=== PATIENT | male | born 1945 | race Caucasian/White ===

== ENCOUNTER → 2016-11-19 13:37 | Outpatient (CLI) | payer MEDICARE, BC ==
[2011-11-12 13:14] VITALS: BMI 27.6
== END | disposition home or self-care (01) ==
LOC: D.CT 11-18 14:30
DX: I71.4 Abdominal aortic aneurysm, without rupture (principal)

== ENCOUNTER 2016-12-16 07:20 | Inpatient (IN) | payer MEDICARE, BC ==
[2016-12-16] VITALS (32 sets, daily range): BP systolic 114–141; BP diastolic 49–82; BMI 34.5; BMI 34.6
[2016-12-16 09:28] LABS: BASOPHILS 0.6 % (0-2); HEMATOCRIT 33.4 % (42.0-54.0); HEMOGLOBIN 10.3 g/dL (13.5-17.5); IMMATURE GRANULOCYTES 0.1 % (0-5); LYMPHOCYTES 22.9 % (15-50); MCH 23.8 pg (26.0-34.0); MCHC 30.8 g/dL (31.0-37.0); MCV 77.3 fL (80.0-100.0); MEAN PLATELET VOLUME 9.3 fL (7.4-10.4); NEUTROPHILS 65.4 % (40-80); RBC 4.32 10x6/uL (4.20-6.10); RDW 18.8 % (11.5-14.5); WBC 7.9 10x3/uL (4.8-10.8)
[2016-12-16 09:30] LABS: PLATELET COUNT 245 10x3/uL (130-400)
[2016-12-16 09:35] LABS: APTT 29.4 SECONDS (22.8-39.4); INR 1.08 (0.85-1.17); PROTIME 13.9 SECONDS (11.6-15.0)
[2016-12-16 09:45] LABS: ALBUMIN 3.6 g/dL (3.4-5.0); ANION GAP 12.5 mmol/L (8-16); BILIRUBIN - TOTAL 0.59 mg/dL (0.2-1.3); CALCIUM 8.9 mg/dL (8.5-10.1); CREATININE - SERUM 1.3 mg/dL (0.6-1.3); POTASSIUM - SERUM 4.5 mmol/L (3.5-5.1); PROTEIN - SERUM 7.6 g/dL (6.4-8.2)
[2016-12-16] MEDS ORDERED: PROBIOTIC1 EAC1 PO (09:56)
[2016-12-16] MEDS ORDERED: MELATONIN10 M1 PO (09:56)
[2016-12-16] MEDS ORDERED: RESTORIL15 MG PO (09:57)
[2016-12-16] MEDS ORDERED: CENTRUM MEN'S1 EACH PO (09:57)
[2016-12-16] MEDS ORDERED: ULTRAM50 MG PO (09:58)
[2016-12-16] MEDS ORDERED: NEXIUM40 MG PO (09:58)
[2016-12-16] MEDS ORDERED: VITAMIN B COMPL1 TAB PO (09:58)
[2016-12-16] MEDS ORDERED: DIOVAN160 MG PO (09:59)
[2016-12-16] MEDS ORDERED: BREO ELLIPTA 11 EACH INH (09:59)
[2016-12-16] MEDS ORDERED: BAYER CHEWABLE81 MG PO (09:59)
[2016-12-16] MEDS ORDERED: MOBIC7.5 MG PO (10:00)
[2016-12-16] MEDS ORDERED: PRILOSEC10 M1 PO (10:01)
[2016-12-16] MEDS ORDERED: OMEPRAZOLE20 M1 PO (10:01)
[2016-12-16 11:10] LABS: APPEARANCE CLEAR (CLEAR); BILIRUBIN NEGATIVE (NEGATIVE); COLOR DK YELLOW (YELLOW); GLUCOSE NEGATIVE (NEGATIVE); KETONE SMALL mg/dL (NEGATIVE); NITRITE NEGATIVE (NEGATIVE); PROTEIN NEGATIVE (NEGATIVE); UROBILINOGEN NORMAL (NORMAL)
--- NOTE | 2016-12-16 15:30 | NUR ---
REC'D PT FROM OR VIA BED, BILAT GROIN DRESSINGS CDI, NO SIGNS OF HEMATOMA. NY CATHETER FREE OF KINKS TO GRAVITY WITH CLEAR YELLOW URINE RETURN, 4LNC. RIGHT RADIAL A-LINE, WRIST PROTECTOR INTACT, GOOD WAVE FORM. SHIFT ASSESSMENT COMPLETED, SEE FLOW SHEET. ROOM FREE OF CLUTTER, CALL LIGHT IN REACH, NURSE AT THE BEDSIDE, WILL CONTINUE TO MONITOR PT.
--- NOTE | 2016-12-16 15:45 | NUR ---
DR. NARAYAN AT THE BEDSIDE SPEAKING WITH FAMILY, ALL QUESTIONS ANSWERED, VSS, WILL CONTINUE TO MONITOR PT.
--- NOTE | 2016-12-16 17:00 | NUR ---
SPOKE WITH JULY RN, DR. COTTO'S RN TO INFORM OF CONSULT, "I WILL TELL HIM"
--- NOTE | 2016-12-16 19:00 | NUR ---
REPORT RECIEVED. ASSESSMENT COMPLETED. SEE FLOW SHEET FOR FURTHER DETAILS. PT POSITIONED FOR COMFORT. CALL LIGHT IN REACH. BED IN LOW POSITION. WILL CONTINUE TO MONITOR.
--- NOTE | 2016-12-16 21:00 | NUR ---
SON AT BED SIDE. PT RESTING COMFORTABLY. WILL CONTINUE TO MONITOR PT.
--- NOTE | 2016-12-16 23:00 | NUR ---
REASSESSMENT COMPLETED. NO ACUTE CHNAGES AT THIS TIME. VSS. WILL CONTINUE TO MONITOR PT.
[2016-12-17] VITALS (42 sets, daily range): BP systolic 106–151; BP diastolic 47–76; BMI 35.9
--- NOTE | 2016-12-17 01:00 | NUR ---
PT RESTING COMFORTABLY. POSITIONED FOR COMFORT. CALL LIGHT IN REACH WILLL CONTINUE TO MONITOR PT.
--- NOTE | 2016-12-17 03:00 | NUR ---
REASSESSMENT COMPLETED AT THIS TIME. SEE FLOW SHEET FOR FURTHER DETAILS. PT POSITIONED FOR COMFORT WILL CONMTINUE TO MONITOR.
--- NOTE | 2016-12-17 05:00 | NUR ---
PT POSITIONED FOR COPMFORT, WILL CONTINUE TO MONITOR.
[2016-12-17 06:26] LABS: HEMOGLOBIN 8.4 g/dL (13.5-17.5); MCH 24.3 pg (26.0-34.0); MCHC 31.8 g/dL (31.0-37.0); MCV 76.5 fL (80.0-100.0); MEAN PLATELET VOLUME 9.1 fL (7.4-10.4)
[2016-12-17 06:29] LABS: HEMATOCRIT 26.4 % (42.0-54.0); RBC 3.45 10x6/uL (4.20-6.10); WBC 10.1 10x3/uL (4.8-10.8)
[2016-12-17 06:34] LABS: ANION GAP 12.2 mmol/L (8-16); CALCIUM 7.6 mg/dL (8.5-10.1); CARBON DIOXIDE 27.5 mmol/L (21.0-32.0); CREATININE - SERUM 1.2 mg/dL (0.6-1.3)
[2016-12-17 06:41] LABS: POTASSIUM - SERUM 3.7 mmol/L (3.5-5.1)
--- NOTE | 2016-12-17 07:15 | NUR ---
REPORT RECIEVED FROM EXPERIMENTAL MECHANIC OUTBOARD MOTORS NURSE. PT RESTING IN BED QUIETLY. NO S/SX OF ACUTE DISTRESS NOTED AT THIS TIME. FULL ASSESSMENT COMPLETE PER FLOWSHEET. REFER FOR DETAILS. CALL LIGHT IN REACH. WILL CONT TO ASSESS.
--- NOTE | 2016-12-17 09:00 | NUR ---
A-LINE AND NY CATHETER PULLED PER ORDERS. NO ISSUES NOTED UPON REMOVAL. BED BATH GIVEN AND ASSISTED TO RECLINER. MODERATE ASSIST REQUIRED. CALL LIGHT IN REACH ALONG WITH MODULAR SET CREW MEMBER BUTTOM. WILL CONT TO ASSESS.
--- NOTE | 2016-12-17 11:00 | NUR ---
REASSESSMENT COMPLETE PER FLOWSHEET. NO CHANGES NOTED AT THIS TIME. WILL CONT TO ASSESS.
--- NOTE | 2016-12-17 13:00 | NUR ---
PT AT BEDSIDE TO WALK PT.
--- NOTE | 2016-12-17 14:11 | NUR ---
* Is the patient Alert and Oriented? Yes 0 * How many steps to enter\exit or inside your home? 0 0 * PCP Dr. Pickard 0 * Pharmacy [facility] 0 * Preadmission Environment Home Alone 0 * ADLs Independent 0 * List name and contact numbers for known caregivers / representatives who currently or will assist patient after discharge: Josue Tran [phone] 0 * Additional services required to return to the preadmission environment? No 0 * Can the patient safely return to the preadmission environment? Yes 0 * Has this patient been hospitalized within the prior 30 days at any hospital? No Patient Name: JESSICA TRAN Admission Status: Urgent Accout number: [id number] Admission Date: 12-16-2016 : 1945 Admission Diagnosis: Attending: HARJIT NARAYAN Current LOS: 1 Anticipated DC Date: 12-18-2016 Planned Disposition: Home Primary Insurance: MEDICARE A & B Discharge Planning Comments: CM met with patient to assess dc plans/needs. Patient states he lives alone & is independent with all ADL's & IADL's. He does not use any DME at home or have home health services. At dc, he states his son will drive him home. 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 CM will follow & assist as needed. Clinical Project Coordinator: Arielle Cr
--- NOTE | 2016-12-17 15:00 | NUR ---
ASSISTED TO BATHROOM. VOIDED 20CC OF NELSON COLORED URINE. WILL CONT TO ASSES I&O'S.
--- NOTE | 2016-12-17 15:59 | OP ---
PATIENT NAME: JESSICA MCKEON MEDICAL RECORD: [id number] :[birth year] LOCATION:[facility] ADMISSION DATE:12/16/16 SURGEON: HARJIT NARAYAN MD DATE OF OPERATION: 12/16/2016 ANESTHESIA: General endotracheal, Dr. Newby OPERATION PERFORMED: Endovascular stent repair of abdominal aortic aneurysm. PREOPERATIVE DIAGNOSIS: Large abdominal aortic aneurysm. POSTOPERATIVE DIAGNOSIS: Large abdominal aortic aneurysm. INDICATION FOR OPERATION: Large abdominal aortic aneurysm. FINDINGS AT OPERATION: Contrast 78 cc Isovue. Fluoroscopy time was 8 minutes 4 seconds. ESTIMATED BLOOD LOSS: Less than 50 mL The endovascular stent graft was an Endurant II stent graft system. OPERATIVE PROCEDURE: 1. Open femoral artery exposure bilaterally, 82459-30. 2. Catheter sheath placement into the aorta, nonselective, 15879-34. 3. Endovascular AAA repair with modular bifurcated device, one docking limb, 97693. a. Rad S&I, 27126-10. 4. Repair of blood vessel direct bilaterally, 62872-32. The main body was a 28 x 13 x 166 in the ipsilateral right side. The docking limb 16 x 13 x 124 into the contra left. DESCRIPTION OF PROCEDURE: After informed consent and adequate preoperative medication evaluation, the patient was brought to the operating room and placed on the table in the supine position. After induction of general endotracheal anesthesia and application of appropriate monitoring devices, the chest, neck, abdomen, and both groins were prepped and draped in a sterile field utilizing Betadine scrub, alcohol, and Betadine solution. Betadine-impregnated drape was also used. Bilateral groin incisions were made above the inguinal ligament. Dissection was carried down to the fascia. Hemostasis maintained with electrocautery. The inguinal ligaments were elevated bilaterally and the common femoral arteries dissected free of surrounding structures proximally and distally and surrounded with vessel loops. The patient was given a calculated dose of heparin. Utilizing a micropuncture technique and exchange wires, the groins were accessed with a 7-Icelandic sheath. A Glidewire and pigtail catheter were placed in the aorta just above the renal arteries. An arteriogram obtained and delineated the features and measurements made. Exchange was made for a stiff wire on the right and the bifurcated device was placed at the renal arteries and deployed with suprarenal fixation. Attention was then turned toward the contralateral utilizing a Kumpe catheter and Glidewire, the contralateral gate was accessed and exchange made for a stiff wire. The contralateral limb was placed. Bilateral Reliant balloons were used to dilate the device and aortogram performed and demonstrated no endoleaks and good placement of the graft. The wires, catheter, sheaths were removed and the OPERATIVE REPORT [id number] LINDA,JESSICA artery was closed in 2 layers utilizing running 6-0 Prolene suture. All maneuvers to remove trapped air were performed. The clamps were removed sequentially. The patient was given a calculated dose of protamine to reverse the heparin. Hemostasis was maintained. Instrument count and sponge count were correct times 2. Wounds closed in layers utilizing 2-0 Vicryl on deep subcutaneous tissue, 5-0 subcuticular Monocryl on the skin. Sterile dressings were applied. The patient tolerated the procedure well and was transferred to the CV ICU in satisfactory condition. TRANSINT:[id number] Voice Confirmation ID: [id number] DOCUMENT ID: [id number] HARJIT NARAYAN MD at 1559 CC: [id number] DICTATION DATE: 12/16/16 1528 BUYING AGENT: 12/16/16 1643 ADM IN [facility] [address] [id number]
--- NOTE | 2016-12-17 15:59 | HP ---
PATIENT: JESSICA MCKEON MEDICAL RECORD: [id number] ACCOUNT: [id number] LOCATION:[facility] : [birth year] ADMISSION DATE: 12/16/16 HISTORY AND PHYSICAL EXAMINATION JESSICA Hare (71yo, M) ID# [id number]. Date/Time12/11/2016 01:90ZMARM93 1945Service Dept.[facility]PP[facility] ClinicProviderEDNIKA NARAYAN MDInsuranceMed Primary: [place] ([place]) Insurance # : [id number] Employer Name : RETIRED Med Secondary: [place] ([place]PPLEMENT) Insurance # : [id number] Employer Name : RETIRED Prescription: [place] - Member is eligible. Chief Complaint Followup: Abdominal aortic aneurysm without rupture RTC CTA AFRO Patient's Care Team Primary Care Provider: PAUL COTTO MD: [address] [place] [address], , Patient's Pharmacies [facility] [address] (ERX): [phone] [facility] [address], , Vitals BP:102/68 sitting R arm 12/11/2016 01:43 pmHR:80R/R 12/11/2016 01:43 pmHt:5 ft 9 in 12/11/2016 01:41 pmWt:225 lbs 12/11/2016 01:43 pmBMI:33.2 12/11/2016 01:43 pmAllergies Reviewed Allergies NKDAPOLLENMedications Reviewed Medications bisacodyl 5 mg tablet,delayed release TK UTD.10/02/13 filledsurescriptsBreo Ellipta 100 mcg-25 mcg/dose powder for aqaktbgjxi76/18/17 filledPRIMEchlorhexidine gluconate 0.12 % haxasabjt74/01/17 filledPRIMEesomeprazole magnesium 40 mg capsule,delayed release TAKE 1 CAPSULE PO ONCE DAILY10/09/16 filledPRIMEgabapentin 100 mg rfuplsx94/10/17 filledPRIMEHYDROcodone 5 mg-acetaminophen 325 mg ogkeci29/01/17 filledPRIMEibuprofen 800 mg sjelds34/14/15 filledPRIMEmagnesium oxide 400 mg tablet TK 1 T PO QD07/08/16 filledsurescriptsmeloxicam 15 mg tablet TK 1 T PO QAM11/09/16 filledPRIMEomeprazole 20 mg capsule,delayed itbaajk87/23/12 filledCaremarkpenicillin V potassium 500 mg /30/13 filledCaremarkpolyethylene glycol 3350 17 gram/dose oral ndddyq65/11/14 filledPRIMEPreviDent 5000 Booster Plus 1.1 % dental paste USE UTD.10/04/13 filledsurescriptsQUEtiapine 25 mg tablet TK 1 T PO HS08/31/16 filledPRIMEtemazepam 15 mg capsule TK 1 TO 2 CS PO HS11/09/16 filledsurescriptstraMADol 50 mg khawzo47/09/17 filledPRIMEtriazolam 0.25 mg rtehac15/01/17 filledsurescriptsvalsartan 160 mg tablet TK 1 T PO ONCE DAILY10/09/16 filledPRIMEvalsartan 160 mg-hydrochlorothiazide 12.5 mg tablet TK 1 T PO QAM06/02/14 filledsurescriptsProblems Reviewed Problems Hyperlipidemia Cyst of eyelid HISTORY AND PHYSICAL [id number] JESSICA MCKEON Essential hypertension Coronary arteriosclerosis in [place] artery Abdominal aortic aneurysm without rupture Gastroesophageal reflux disease Right upper quadrant pain Large liver History of polyp of colon Family History Discussed Family History Non-contributory.paternal: leukemia; maternal: htnSocial History Discussed Social History Cardiology Smoking Status: Current every day smoker (Notes: smokes about three cigars daily) High blood pressure: Y Exercise level: Moderate Alcohol intake: Occasional Diet: Regular Occupation: retired Marital status: Surgical History Reviewed Surgical History Other - 04/2011 - left hip surgery Past Medical History Discussed Past Medical History Abdominal Pain: Y - RUQ Aneurysmn (specify): Y - LT fem. art. Aortic Aneurysm: Y Circulation Problems: Y Coronary Artery Disease: Y GERD: Y High Blood Pressure: Y Hyperlipidemia: Y Hypertension: Y Documents for Discussion N/A Screening None recorded. HPI Peripheral Vascular Disease Reported by patient. Location: foot; "my neuropathy is bothering me." Severity: interferes with normal activity; moderate abdominal aortic aneurysm ROS Patient reports exercise intolerance but reports no fever, no night sweats, no significant weight gain, and no significant weight loss. He reports shortness of breath when walking but reports no chest pain, no arm pain on exertion, no shortness of breath when lying down, no palpitations, and no known heart murmur. He reports shortness of breath but reports no cough, no wheezing, and no coughing up blood. He reports no muscle aches, no muscle weakness, no arthralgias/joint pain, no back pain, and no swelling in the extremities; aches and pains and peripheral neuropathy. He reports no dry eyes, no irritation, and no vision change. He reports no difficulty hearing and no ear pain. He reports no frequent nosebleeds and no HISTORY AND PHYSICAL [id number] LINDA,JESSICA nose/sinus problems. He re ports no sore throat, no bleeding gums, no snoring, no dry mouth, no mouth ulcers, no oral abnormalities, and no teeth problems. He reports no abdominal pain, no vomiting, normal appetite, no diarrhea, not vomiting blood, no nausea, and no constipation. H e reports no incontinence, no difficulty urinating, no hematuria, and no increased frequency. He reports no abnormal mole, no jaundice, and no rashes. He reports no loss of consciousness, no weakness, no numbness, no seizures, no dizziness, and no headache s . He reports no depression, no sleep disturbances, feeling safe in relationship, and no alcohol abuse. He reports no fatigue. He reports no swollen glands and no bruising. He reports no runny nose, no sinus pressure, no itching, no hives, and no frequent sneezing. ROS as noted in the HPI Physical Exam Patient is a 71-year-old male. Constitutional: General Appearance well nourished and developed and healthy-appearing. Level of Distress NAD. Ambulation ambulating normally. Cardiovascular: Apical Impulse not displaced or no thrill. Heart Auscultation normal s1 and s2; no murmurs, rubs, or gallops; and RRR. Arterial Pulses no abdominal aorta bruits, femoral bruits, or popliteal bruits and 2+ bilateral, carotid 2+ bilateral, femoral 2+ bilate ral, popliteal 2+ bilateral, and dorsalis pedis 2+ bilateral. Edema no edema or varicosities. Lungs: Repiratory Effort no dyspnea. Percussion no hyperresonance or dullness or flatness. Auscultation no wheezing, rhonchi, or rales / crackles and breathing sounds normal, good air movement, and CTA except as noted. Abdomen: Bowl Sounds normal. Inspection and Palpation no tenderness, guarding, masses, or rebound tenderness and soft and non-distended; AAA NON TENDER. Liver non-tender and no hepatomegaly. Spleen non-tender and no splenomegaly. Hernia none palpable. Ears, Nose, Throat: Hearing grossly normal hearing. Nose no external nose lesion. Lips, Teeth, and Gums no mouth or lip ulcers. Oropharynx: moist mucous membranes. Musculoskeletal System: Gait And Stance normal gait and stance. Digits and Nails normal nails and no cyanosis. Neurologic: Cranial Nerves grossly intact. Reflexes DTRs 2+ bilaterally throughout. Sensation grossly intact. Lymph Nodes: Lymph Nodes no cervical LAD, supraclavicular LAD, axillary LAD, or inguinal LAD. Eyes: Lids and Conjunctivae no discharge or pallor and non-injected. Pupils PERRLA. Cornea grossly intact. EOM EOMI. Lens clear. Sclerae non-icteric. Neck: Neck no masses, enlarged lymph nodes, or carotid bruits and supple and trachea midline. Thyroid no enlargement or nodules and non-tender. Skin: Inspection and Palpation no rash, lesions, ulcers, jaundice, or abnormal nevi. Assessment / Plan 1. Abdominal aortic aneurysm without rupture I71.4: Abdominal aortic aneurysm, without rupture ABDOMINAL AORTIC ANEURYSM: CARE INSTRUCTIONS HISTORY AND PHYSICAL [id number] JESSICA MCKEON Discussion Notes I discussed mistake his disease process with him in detail as well as the alternative methods of treatment we discussed endovascular stent repair and ope n abdominal aneurysm repair including the expected benefits and risks which include bleeding, infection, stroke, , and the imponderables. He understands all of the above and wishes to proceed with planned procedure HARJIT NARAYAN MD at 1559 CC: [id number] DICTATION DATE: 12/11/16 1330 AUTOMATION AND CONTROLS MANAGER: 12/14/16 1128 ADM IN [id number] [place] [address]
--- NOTE | 2016-12-17 17:00 | NUR ---
SON AT BEDSIDE FOR VISITATION. NO CHANGES NOTED AT THIS TIME. WILL CONT TO ASSESS.
--- NOTE | 2016-12-17 19:30 | NUR ---
1930: Pt incision CDI no with no s/s of bleeding, oozing, or swelling noted. Pt denies pain, tingling, numbness, or nausea at this time. Pt temp 98.9 Oral.
--- NOTE | 2016-12-17 20:00 | NUR ---
2000: Pt rec'd sitting in chair. Pt requested to go back to bed. Pt able to stand without difficulty and has steady gait. Pt returned to bed and SR up x2. Pt states; "I am supposed to go home in the morning and the doctor said I coudl have all this stuff off." Discussed ICU policy with patient. Pt states; "I would really appreciate it if you could disconnect all this stuff (pionting at IVF+TABULAR TYPIST) and pull my curtain, close the door and let me sleep" Pt states he has not slept for 48 hours. Reviewed pt EMAR and TABULAR TYPIST orders. Pt states "I don't have pain, you can turn it off" Pt breathing RA RR16x with SPO2 97%. S1S2 SR 80's on CM with SBP 120-130. Attempted to minimize all care per pt request and comfort. ABD soft NT BSx4 active. Pt states he has no difficulty with elimination.
[2016-12-18] VITALS (11 sets, daily range): BP systolic 119–155; BP diastolic 53–92
--- NOTE | 2016-12-18 | NUR ---
0000: Pt resting with eyes closed at this time. Pt remains SR 90's on CM with SBP 120-130.
--- NOTE | 2016-12-18 03:30 | NUR ---
0330: Pt sitting up in bed at this time. Pt without c/o at this time. Remains Afebrile 98.1F oral temp. SR 80-90bpm on CM with SBP 130. Pt remains on RA RR19x with SPO2 94%. Pt groin sites unchanged from assessment. No bleeding or oozing noted. PPPx4. (R>L in quality)
--- NOTE | 2016-12-18 06:30 | NUR ---
0630: Pt resting with eyes closed at this time, easily arousable via verbal. IS done per RT with max TV 1200cc achieved. Pt remains RA RR16x with SP02 92% at this time. Encouraged DBC. Pt remains SR with occasional PACs seen on CM 80bpm's. Pt remains Afebrile with T98.4F oral.
--- NOTE | 2016-12-18 07:30 | NUR ---
REPORT RECIEVED FROM TRUCK DRIVER'S OFFSIDER NURSE. FULL ASSESSMENT COMPLETE PER FLOWSHEET. PT RESTING IN CHAIR QUIETLY. NO S/SX OF ACUTE DISTRESS NOTED AT THIS TIME. VSS. CALL LIGHT IN REACH. WILL CONT PLAN OF CARE.
[2016-12-18] MEDS ORDERED: METOPROLOL TART50 MG PO (09:12)
--- NOTE | 2016-12-18 10:00 | NUR ---
CENTRAL LINE REMOVED PER ORDERS. NO ISSUES NOTED UPON REMOVAL. WILL MONITOR.
--- NOTE | 2016-12-18 11:00 | NUR ---
D/C INSTRUCTIONS REVIWED WITH PT. QUESTIONS ANSWERED. ASSISTED TO VEHICLE VIA W/C.
--- NOTE | 2017-01-03 12:06 | DS ---
PATIENT:JESSICA MCKEON :47 MEDICAL RECORD: [id number] DISCHARGE SUMMARY ADMISSION DATE: 12/16/16 DISCHARGE DATE: 12/18/16 DISCHARGE DIAGNOSES: 1. Large abdominal aortic aneurysm. 2. Posthemorrhagic anemia. 3. Coronary artery disease. 4. Hypertension. 5. Hyperlipidemia. 6. Peripheral arterial disease. 7. Atrial premature depolarization. DISCHARGE MEDICATIONS: Please see medical reconciliation form. DISPOSITION: The patient discharged home, has an appointment to see Dr. Maloney in 2-3 weeks and appointment to see Dr. Pickard to be arranged. HOSPITAL COURSE: The patient was admitted to the hospital and underwent endovascular stent repair of his abdominal aortic aneurysm. Postoperatively, he did well, had no problems of bleeding, infection or arrhythmias. On his final postoperative day in the hospital, he is ambulating and taking a diet and eager to go home. He has been given discharge instructions and wound precautions and will be seen as above. TRANSINT:[id number] Voice Confirmation ID: [id number] DOCUMENT ID: [id number] HARJIT MALONEY MD at 1206 CC: [id number] DICTATION DATE: 12/26/16 1326 SPOOL SANDER: 12/26/16 1424 DIS IN 12/18/[id number] [place] [address]
== END 2016-12-18 11:30 | disposition home or self-care (01) | DRG 269 ==
LOC: D.SDCHOLD 07:20 → D.CVICU 14:59
PROVIDERS: ADMIT Internal Medicine Cardiovascular Disease
PROC: 04V03DZ Restriction of Abdominal Aorta with Intraluminal Device, Percutaneous Approach (ICD-10-PCS; principal; 2016-12-16 10:30)
DX: I71.4 Abdominal aortic aneurysm, without rupture (principal); D62 Acute posthemorrhagic anemia; I25.10 Atherosclerotic heart disease of native coronary artery without angina pectoris; I10 Essential (primary) hypertension; E78.5 Hyperlipidemia, unspecified; K21.9 Gastro-esophageal reflux disease without esophagitis; I73.9 Peripheral vascular disease, unspecified; I95.81 Postprocedural hypotension; I49.1 Atrial premature depolarization; F17.200 Nicotine dependence, unspecified, uncomplicated

== ENCOUNTER → 2018-04-20 15:29 | Outpatient (CLI) | payer MEDICARE, BC ==
[2016-12-17 10:27] VITALS: BMI 35.9
[~2018-04-20 15:29] MED LIST: BAYER CHEWABLE81 MG PO; BREO ELLIPTA 11 EACH INH; CENTRUM MEN'S1 EACH PO; DIOVAN160 MG PO; MELATONIN10 M1 PO; METOPROLOL TART50 MG PO; MOBIC7.5 MG PO; NEXIUM40 MG PO; OMEPRAZOLE20 M1 PO; PRILOSEC10 M1 PO; PROBIOTIC1 EAC1 PO; RESTORIL15 MG PO; ULTRAM50 MG PO; VITAMIN B COMPL1 TAB PO
== END | disposition home or self-care (01) ==
LOC: D.CT 04-19 16:00
PROVIDERS: ATTEND Internal Medicine Cardiovascular Disease
DX: Z98.890 Other specified postprocedural states (principal)